=== PATIENT | female | born 1975 | race Caucasian/White ===

== ENCOUNTER 2017-05-01 17:01 | Emergency (ER) | payer MEDICARE, MEDICAID ==
[2017-05-01 19:23] LABS: BASOPHILS 0.2 % (0-2); EOSINOPHILS 0.7 % (0-7); HEMATOCRIT 36.7 % (36.0-48.0); HEMOGLOBIN 12.6 g/dL (12-16); IMMATURE GRANULOCYTES 0.1 % (0-5); MCH 30.6 pg (26.0-34.0); MCHC 34.3 g/dL (31.0-37.0); MCV 89.1 fL (80.0-100.0); MEAN PLATELET VOLUME 9.4 fL (7.4-10.4); MONOCYTES 4.9 % (2-11); NEUTROPHILS 72.1 % (40-80); PLATELET COUNT 232 10x3/uL (130-400); RBC 4.12 10x6/uL (4.00-5.40); RDW 12.4 % (11.5-14.5); WBC 9.1 10x3/uL (4.8-10.8)
[2017-05-01 19:45] LABS: ALBUMIN 3.3 g/dL (3.4-5.0); ALKALINE PHOSPHATASE 95 U/L (46-116); ALT (SGPT) 17 U/L (10-68); BILIRUBIN - TOTAL 0.17 mg/dL (0.2-1.3); CALC OSMOLALITY 277 mosm/kg (275-300); CARBON DIOXIDE 23.9 mmol/L (21.0-32.0); CHLORIDE - SERUM 108 mmol/L (98-107); CREATININE - SERUM 0.7 mg/dL (0.6-1.3); GLUCOSE 103 mg/dL (74-106); POTASSIUM - SERUM 3.5 mmol/L (3.5-5.1); PROTEIN - SERUM 6.7 g/dL (6.4-8.2); SODIUM 140 mmol/L (136-145); UREA NITROGEN 9 mg/dL (7-18); eGFR NON AFRICAN AMERICAN > 90 mL/min (90-120)
[2017-05-01 19:48] LABS: CARBAMAZEPINE (TEGRETOL) 6.6 ug/mL (4.0-12.0); CREATINE KINASE 82 UL (21-215); TROPONIN-I 0.016 ng/mL (0.000-0.060)
== END 2017-05-01 22:00 | disposition home or self-care (01) ==
LOC: D.ER 17:01
PROVIDERS: Nurse Practitioner Family
DX: G40.909 Epilepsy, unspecified, not intractable, without status epilepticus (principal); R53.1 Weakness

== ENCOUNTER 2018-03-01 13:31 | Emergency (ER) | payer MEDICARE, MEDICAID ==
[~2018-03-01] VITALS: Ht 147.3 cm; Wt 58.6 kg
[2018-03-01 13:38] VITALS: Ht 147.3 cm; Wt 58.6 kg
[2018-03-01] MEDS ORDERED: TEGRETOL200 MG PO (13:43)
[2018-03-01] MEDS ORDERED: TOPAMAX25 MG PO (13:43)
[2018-03-01] MEDS ORDERED: TYLENOL W/CODEI1 TAB PO (15:54)
[2018-03-01 16:58] VITALS: BP 107/54
== END 2018-03-01 16:30 | disposition home or self-care (01) ==
LOC: D.ER 13:31
DX: S09.90XA Unspecified injury of head, initial encounter (principal); W18.30XA Fall on same level, unspecified, initial encounter; Y93.9 Activity, unspecified; Y92.019 Unspecified place in single-family (private) house as the place of occurrence of the external cause

== ENCOUNTER 2019-03-25 09:00 | Outpatient (CLI) | payer MEDICARE ==
[2018-03-01 13:38] VITALS: BMI 27.0
[~2019-03-25 09:00] MED LIST: TEGRETOL200 MG PO; TOPAMAX25 MG PO; TYLENOL W/CODEI1 TAB PO
== END 2019-03-25 10:00 | disposition home or self-care (01) ==
LOC: D.MAMMO 09:00
PROVIDERS: ATTEND Family Medicine Adult Medicine
DX: Z12.31 Encounter for screening mammogram for malignant neoplasm of breast (principal)

== ENCOUNTER 2019-06-15 06:30 | Day surgery (SDC) | payer MEDICARE, OTHER ==
[2019-06-12 11:09] LABS: CALC OSMOLALITY 281 mosm/kg (275-300); CALCIUM 8.7 mg/dL (8.5-10.1); CARBON DIOXIDE 27.4 mmol/L (21.0-32.0); CHLORIDE - SERUM 106 mmol/L (98-107); CREATININE - SERUM 0.5 mg/dL (0.6-1.3); GLUCOSE 96 mg/dL (74-106); POTASSIUM - SERUM 4.4 mmol/L (3.5-5.1); SODIUM 141 mmol/L (136-145); UREA NITROGEN 15 mg/dL (7-18); eGFR NON AFRICAN AMERICAN > 90 mL/min (90-120)
[2019-06-12 11:27] LABS: BASOPHILS 0.4 % (0-2); EOSINOPHILS 2.8 % (0-7); HEMATOCRIT 38.2 % (36.0-48.0); HEMOGLOBIN 12.6 g/dL (12-16); IMMATURE GRANULOCYTES 0.2 % (0-5); LYMPHOCYTES 40.3 % (15-50); MCH 29.5 pg (26.0-34.0); MCV 89.5 fL (80.0-100.0); MEAN PLATELET VOLUME 9.4 fL (7.4-10.4); MONOCYTES 6.1 % (2-11); NEUTROPHILS 50.2 % (40-80); PLATELET COUNT 267 10x3/uL (130-400); RBC 4.27 10x6/uL (4.00-5.40); RDW 12.8 % (11.5-14.5); WBC 5.3 10x3/uL (4.8-10.8)
[2019-06-12 11:33] LABS: APTT 24.4 SECONDS (22.8-39.4); INR 0.97 (0.85-1.17); PROTIME 12.4 SECONDS (11.6-15.0)
[2019-06-15] VITALS (9 sets, daily range): BP systolic 109–125; BP diastolic 53–63; Ht 147.3 cm; Wt 63.6 kg
[~2019-06-15] VITALS: Ht 147.3 cm; Wt 63.6 kg
[~2019-06-15 06:30] MED LIST changes: +CARBAMAZEPINE PO; +TEGRETOL XR200 M1 PO
[2019-06-15 07:12] LABS: HCG URINE NEGATIVE (NEGATIVE)
--- NOTE | 2019-06-15 18:00 | NUR ---
RECEIVED PT FROM VIA STRETCHER TO ROOM 1278. PT TRANSFERS ONTO BED PER SELF. PT C/O NAUSEA. DRY HEAVING NOTED IN BLUE EMESIS BAG. COLD, WET TOWEL TO FACE. PT REPOSITIONS MORE SEMI-IYER'S POSITION. 3 LAP INCISIONS NOTED. INCISION TO RIGHT SIDE OF ABD WITH MOD AMT OF SEROSANGUINOUS DRAINAGE NOTED. PRESSURE BANDAGE PLACED (2 4X4'S AND PAPER TAPE). 2 OTHER INCISIONS WITHOUT DRAINAGE NOTED. ICE PACK TO INCISION. SCDS ON BLE. PUMP ON. SKELTON TO GRAVITY DRAINING CLEAR, YELLOW URINE.
--- NOTE | 2019-06-15 18:03 | NUR ---
VSS. HRRR WITHOUT AUDIBLE MURMUR. BS TO UPPER LOBES WITH EXPIRATORY CRACKLES NOTED. PT COUGHS INSTRUCTED AND BS CLEAR TO ALL LOBES. PIV OF LR INFUSING AT 125 ML/HR. SITE CLEAR TO LEFT HAND. SO AT BEDSIDE. PT ORIENTED TO ROOM, BED, AND CALL LIGHT. SR UP X 2. CALL LIGHT IN REACH.
--- NOTE | 2019-06-15 18:30 | NUR ---
PT LYING IN SEMI-IYER'S POSITION IN BED. EYES CLOSED. RESP NON-LABORED. PT NOT DISTURBED TO ALLOW FOR REST. VSS. SO AT BEDSIDE.
--- NOTE | 2019-06-15 19:15 | NUR ---
PT CALLS OUT WITH C/O NAUSEA. EMESIS BAG IN HAND, PT GIVEN COOL CLOTH. WILL NOTIFY .
--- NOTE | 2019-06-15 19:18 | NUR ---
DR FISHMAN PHONED WITH REPORT OF PT'S C/O NAUSEA, ORDER RCVD FOR 25MG PHENERGAN IVP Q6H PRN N/V, ADMIN DILUTED PER PROTOCOL.
--- NOTE | 2019-06-15 19:35 | NUR ---
PHENERGAN 25 MG DILUTED IN 9 ML NS GIVEN SIVP OVER 10 MINUTES. PIV SITE CLEAR. PT KURTIS WELL.
--- NOTE | 2019-06-15 20:39 | NUR ---
PT REC'D IN BED AT THIS TIME. PT VERY DROWSEY. VSS. LUNGS CLEAR. BS+. INCISIONS X3 TO ABDOMEN AT THIS TIME. INCISIONS TO LOWER RTIGHT COVERED. DRESSING CDI AT THIS TIME. . LR INFUSING TO THE RT HAND AT 125 ML/HR. SITE CLEAR AND PATENT AT THIS TIME. SKELTON CATH PATENT WITH YELLOW URINE NOTED AT THIS TIME. EMPTIED 250 ML AT THIS TIME. SCD ON AND FUNCTIONAL . NO ACUTE DISTRESS NOTED AT THIS TIME. SIDERTAILS UP FOR SAFETY. CALL LIGHT IN PT REACH. Sammi ARANDA RN
--- NOTE | 2019-06-15 22:38 | NUR ---
PT REMAINS ASLEEP. AND DIFFICULT TO AROUSE. 500 ML OF YELLOW URINE NOTED AT THIS TIME. Sammi ARANDA RN
[2019-06-16 00:48] VITALS: BP 114/58
--- NOTE | 2019-06-16 00:48 | NUR ---
PT REC'D IN BED AT THIS TIME. AWAKENED EASILY AT THIS TIME. VSS. OFFERED CLEAR LIQUIDS AT THIS TIME. 200 ML OF YELLOW URINE NOTED. TORADOL GIVEN SCHEDULED. NO DISTRESS NOTED. Sammi ARANDA RN
--- NOTE | 2019-06-16 01:00 | NUR ---
CLEAR LIQUIDS GIVEN AT THIS TIME. WILL MONITOR. Sammi ARANDA RN
--- NOTE | 2019-06-16 01:45 | NUR ---
PT ASSISTED UP TO AMBULATE. PT TOLERATED CLEAR LIQIODS WITHOUT NAUSEA OR VOMITING. Sammi ARANDA RN
--- NOTE | 2019-06-16 02:49 | NUR ---
150 ML EMPTIED FROM SKELTON CATH AT THIS TIME. SKELTON CATH REMOVED. PT UP TO VOID. VOIDED 25 ML AT THIS TIME. WILL CONTINUE TO MONITOR. Sammi ARANDA RN
--- NOTE | 2019-06-16 07:04 | OP ---
PATIENT NAME: SILVESTRE DESAI MEDICAL RECORD: [id number] :71 LOCATION:[facility] .1278 ADMISSION DATE: SURGEON: TRAVIS RAMIREZ MD DATE OF OPERATION: 06/15/2019 PREOPERATIVE DIAGNOSIS: Carcinoma in situ of the cervix. POSTOPERATIVE DIAGNOSES: 1. Carcinoma in situ of the cervix. 2. Suspect adenomyosis. PROCEDURES: 1. Diagnostic laparoscopy. 2. Total laparoscopic hysterectomy. 3. Bilateral salpingectomy. 4. Left oophorectomy. SURGEON: Travis Ramirez MD APPLIED SCIENCE AND TECHNOLOGIES DEAN: Dr. Christopher EMPLOYEE WELLNESS/FITNESS COORDINATOR: TREVON Montano ANESTHESIOLOGIST: Dr. Mathew ANESTHETIC: General. FINDINGS: Uterus is enlarged and boggy. Both tubes are unremarkable. Ovaries are unremarkable as well. At the time vagina closed, the vaginal mucosa was noted to be unremarkable as well as the cervix. SPECIMENS REMOVED: Uterus with cervix, bilateral tubes, and left ovary. SPECIMEN DISPOSITION: All specimens to pathology. ESTIMATED BLOOD LOSS: Less than or equal to 100 cc. FLUIDS: 2 liters of lactated Ringer's. URINE OUTPUT: 250 cc of clear urine. COMPLICATIONS: None. DRAINS: Galvez to gravity. INDICATIONS: The patient is a 43-year-old female with abnormal Pap smear. Colpo-directed biopsy showing [id number] dysplasia. The patient was consented for total laparoscopic hysterectomy. DESCRIPTION OF PROCEDURE: After informed consent was assured, the patient was taken to the operating room, where anesthetic was obtained. The patient was placed in Yellofin stirrups and then prepped and draped in the usual sterile fashion. Uterine manipulator was placed and the patient now has attention directed to her abdomen where an incision was made at the umbilicus to accommodate a 5-mm trocar. Accessory trocars were placed in the right and left OPERATIVE REPORT [id number] SILVESTRE DESAI lower quadrant after the patient had been placed in Trendelenburg position. The right adnexa was exposed. The right tube was elevated and using the Thunderbeat coagulation cutter, the tissue was compressed, coagulated, and . This dissection was carried out underneath the right tube across the uterine, ovarian, and round ligament. Anterior leaf of the broad ligament was opened and the bladder flap developed across the midline. The posterior leaf was dissected free of the vascular bundle of the right side, which is compressed, coagulated, and now . Attention was now directed to the left. As the left dissection begins, pneumoperitoneum is unable to be maintained. There was an equipment malfunction with the insufflator and a new device is produced. After establishing pneumoperitoneum and it being maintained, dissection continues. The dissection now is carried out underneath the left ovary across the round ligament and the anterior leaf of the broad ligament was opened. The posterior leaf was dissected free of the vascular bundle of the left side, which was compressed, coagulated, and . The manipulator cup is now entered at the 11 o'clock position. Dissection was carried out from to 11 to 6. The dissection concludes from the right from the 11 to 6 going across at the 12 o'clock position. The patient now has a uterus brought into the vaginal vault. Pneumoperitoneum has remained and adequate hemostasis was noted. The pelvis was irrigated and irrigant removed. The uterus was now removed and the cuff was closed anterior to posterior fashion with a running stitch of 0 Monocryl. Care was taken to incorporate the uterosacral ligaments in this close. After close was completed, the pneumoperitoneum was reestablished and with the patient in Trendelenburg position, the repair site inspected. Some light bleeding was noted from the left corner and Kyrie is now placed. After Kyrie had been placed, it was observed and found to be hemostatic. Pneumoperitoneum is now released and the accessory trocars were removed. The primary trocar was now removed. This is performed after release of the pneumoperitoneum. All sites were closed with a subcuticular stitch and a Dermabond applied. TRANSINT:[id number] Voice Confirmation ID: [id number] DOCUMENT ID: [id number] TRAVIS RAMIREZ MD at 0704 CC: [id number] DICTATION DATE: 06/15/19 1658 [employer] HOME THERAPY: 06/16/19 0002 [facility] [address] [id number]
[2019-06-16 07:12] VITALS: BP 108/56
--- NOTE | 2019-06-16 07:18 | NUR ---
RECEIVED PT SITTING UP IN BED. AWAKE. AAO X 3. VSS. HRRR WITHOUT AUDIBLE MURMUR. BBS CLEAR. BS X 4. ABDOMEN SOFT/NON-DISTENDED. 3 LAP INCISIONS NOTED. DRESSING REMOVED FROM RIGHT SIDE INCISION. NO ACTIVE DRAINAGE NOTED. ALL 3 INCISIONS WITHOUT REDNESS, SWELLING OR DRAINAGE NOTED. NEG HOMANS' SIGN. PPP. NO EDEMA NOTED TO BLE. SL TO LEFT HAND. SITE CLEAR. PT OOB AND AMB TO BR. VOIDS 200 ML OF CLEAR, YELLOW URINE NOTED. PT AMB BACK TO BED. C/O INCISIONAL PAIN OF "6" ON 0-10 PAIN SCALE. TORADOL 30 MG GIVEN SIVP OVER 5 MINUTES. SL FLUSHED WITH NS BEFORE AND AFTER MED. SITE CLEAR. PT KURTIS WELL.
--- NOTE | 2019-06-16 08:40 | NUR ---
PT SITTING UP IN BED. STATES DR RAMIREZ VISITED WITH PT. STATES TOLD PT, PT CAN GO HOME WHEN READY.
--- NOTE | 2019-06-16 08:45 | NUR ---
PT UP TO SHOWER. LINENS PROVIDED.
[2019-06-16] MEDS ORDERED: MOBIC7.5 MG PO (09:00)
[2019-06-16] MEDS ORDERED: PERCOCET 7.5/321 TAB PO (09:00)
[2019-06-16] MEDS ORDERED: NEURONTIN 300300 MG PO (09:01)
--- NOTE | 2019-06-16 10:43 | NUR ---
DISCHARGE INSTRUCTIONS GIVEN TO PT. PT VERBALIZES UNDERSTANDING OF ALL INSTRUCTIONS. COPIES GIVEN TO PT. SL TO LEFT HAND DC'D WITH CATHELON INTACT. PRESSURE BANDAGE TO SITE. PT KURTIS WELL.
--- NOTE | 2019-06-16 10:48 | NUR ---
NEURONTIN GIVEN PO ORDERED. PT INSTRUCTED ON MED. VERBALIZES UNDERSTANDING.
--- NOTE | 2019-06-16 11:00 | NUR ---
PT READY FOR DISCHARGE. DISCHARGED IN STABLE CONDITION VIA WHEELCHAIR TO PRIVATE VEHICLE.
== END 2019-06-16 11:00 | disposition home or self-care (01) ==
LOC: D.OPS 06:30 → D.PAN 07:00 → D.OPS 07:00 → D.LD 16:55 → D.OPS 06-16 11:00
PROVIDERS: Anesthesiology; ATTEND Obstetrics & Gynecology
DX: D06.9 Carcinoma in situ of cervix, unspecified (principal); N80.0 Endometriosis of uterus